=== PATIENT | male | born 1960 | race Caucasian/White ===

== ENCOUNTER 2025-06-04 14:06 | Outpatient (RCR) | payer SELFPAY | END 2025-06-04 23:59 | disposition home or self-care (01) | LOC: RPT 14:06 | PROVIDERS: ATTENDING PHYSICIAN Urology | DX: C61 Malignant neoplasm of prostate (principal); Z73.6 Limitation of activities due to disability; R35.1 Nocturia | CPT/HCPCS: 97162; 97530 ==

== ENCOUNTER 2025-06-21 06:09 | Day surgery (SDC) | payer OTHER, SELFPAY ==
[2025-06-11 08:57] LABS: Hematocrit 47.6 % (39.0-52.0); Hemoglobin 16.3 g/dL (13.0-18.0); Mean Corp Hgb Conc. 34.2 g/dL (33.0-37.0); Mean Corpuscular Volume 91.4 fL (80.0-94.0); Platelet Count 217 10^3/uL (130-400); Red Cell Dist. Width 12.8 % (11.5-14.5)
[2025-06-11 09:38] LABS: Blood Urea Nitrogen 24 mg/dl (9-20); Calcium 9.7 mg/dl (8.4-10.2); Carbon Dioxide 32 mmol/L (22-30); Chloride 106 mmol/L (98-107); Glucose 100 mg/dl (70-99); Potassium 5.0 mmol/L (3.5-5.1); Sodium 141 mmol/L (135-145); eGFR > 60.00
[2025-06-21] VITALS (11 sets, daily range): BP systolic 104–175; BP diastolic 59–89
[2025-06-21] MEDS: NORMOSOL-R/PLASMALYTE-A 1000 IV ×3 (10:49→18:33)
--- NOTE | 2025-06-21 16:36 | W.IMMPOSTOP ---
Surgical Immed Post Op Note
-
Primary Surgeon: Joefer
Assisting Surgeon: -
Pre-op Diagnosis: Prostate cancer
Post-op Diagnosis: same
Procedure Performed: Robotic radical prostatectomy, lymph node dissection
Anesthesia Type: general
Specimen / Cultures: prostate/SVs
Estimated Blood Loss: 100cc
Complications: none
Operative Findings: none
[2025-06-21 17:02] LABS: Hematocrit 43.0 % (39.0-52.0); Hemoglobin 14.8 g/dL (13.0-18.0)
[2025-06-21 17:19] LABS: Blood Urea Nitrogen 23 mg/dl (9-20); Calcium 8.5 mg/dl (8.4-10.2); Carbon Dioxide 25 mmol/L (22-30); Chloride 105 mmol/L (98-107); Estimated Creatinine Clearance 52 ml/min; Glucose 151 mg/dl (70-99); Potassium 3.8 mmol/L (3.5-5.1); Sodium 139 mmol/L (135-145); eGFR 51.99
[2025-06-21] MEDS: DETROL LA 4 MG PO (17:25)
[2025-06-21] MEDS: DILAUDID 0.25 MG IV (17:32)
[2025-06-21] MEDS: VALIUM INJECTION 5 MG IV (18:25)
[2025-06-21] MEDS: LOVENOX 40 MG SC (18:27)
--- NOTE | 2025-06-21 18:51 | PTCARENOTE ---
1800 Pt arrived. VSS. 4LO2. Jones draining bloody urine. 6 lap sites open to air with glue. IVF infusing. oriented to room and call salgado.
[2025-06-21] MEDS: TORADOL 15 MG IV (19:42)
[2025-06-21] MEDS: SENOKOT 17.2 MG PO (19:43)
[2025-06-21] MEDS: MORPHINE SULFATE 4 MG IV (22:32)
[2025-06-22] MEDS: TORADOL 15 MG IV ×3 (00:29→12:29)
[2025-06-22] MEDS: NORMOSOL-R/PLASMALYTE-A 1000 IV (00:49)
[2025-06-22 03:56] VITALS: BP 114/66
[2025-06-22] MEDS: PERCOCET 5/325 1 TABLET PO ×3 (04:43→22:33)
--- NOTE | 2025-06-22 07:40 | W.PN.URO.CBU ---
Today's Communication / Plan
-
OOB and ambulating
Generous PO fluid intake encouraged this AM
Repeat BMP to check Cr @1300
Jones catheter teaching
Discharge home later today
Assessment / Plan
-
[place] 7 prostate cancer
06/21: s/p RALP/BPLND
H/H stable
Cr 1.8 (1.3 post-op)
Meeting all post-op milestones.
Diagnosis
-
Date of Service: June 22, 2025
-
Patient Diagnosis:
[place] 7 prostate cancer
Post Op Day:
06/21: s/p RALP/BPLND
Subjective
-
Feels well - eager to go home today.
Expected mild abdominal soreness.
Tolerating diet.
Objective
-
Vital Signs
Temp Pulse Resp BP Pulse Ox
97.6 F 80 17 114/66 97
06/22/25 03:56 06/22/25 03:56 06/22/25 03:56 06/22/25 03:56 06/22/25 03:56
Intake and Output
06/21/25 06/22/25 06/23/25
06:59 06:59 06:59
Intake Total 200 / 200
Output Total 775 / 775 125 / 125
Balance -575 / -575 -125 / -125
Intake:
IV fluids (Total) 200 / 200
Normosol 200 / 200
Output:
Urine, Jones 775 / 775 125 / 125
Laboratory Results
06/22/25 06:56
06/22/25 06:56
Physical Exam
-
General - well developed, well nourished, no acute distress
Abdomen - soft, non-tender, non-distended
- Jones catheter w/ light blood-tinged UOP
Neuro - AOx3, no motor deficits
Extremities - no clubbing, no cyanosis, no edema
Incision - clean, dry
Dressing - clean, dry, intact
Care Review
Data Reviewed
Discussed with: Nursing
Total Time Spent with Patient (in minutes): 25
[2025-06-22 07:43] LABS: Hematocrit 39.9 % (39.0-52.0); Hemoglobin 13.4 g/dL (13.0-18.0); Mean Corp Hgb Conc. 33.6 g/dL (33.0-37.0); Mean Corpuscular Volume 92.6 fL (80.0-94.0); Platelet Count 218 10^3/uL (130-400); Red Cell Dist. Width 13.3 % (11.5-14.5)
[2025-06-22 08:00] VITALS: BP 112/65
[2025-06-22 08:04] LABS: Blood Urea Nitrogen 28 mg/dl (9-20); Calcium 8.0 mg/dl (8.4-10.2); Carbon Dioxide 28 mmol/L (22-30); Chloride 103 mmol/L (98-107); Estimated Creatinine Clearance 43 ml/min; Glucose 128 mg/dl (70-99); Potassium 4.2 mmol/L (3.5-5.1); Sodium 139 mmol/L (135-145); eGFR 41.77
--- NOTE | 2025-06-22 08:34 | W.DS.TRANS ---
DC Summary - Physician Assistant Primary Care
-
Discharge Instructions:
Sleep Apnea Risk Low
Discharge Diagnosis/Procedures Prostate cancer
Robotic radical prostatectomy
Diet No restrictions
Activity No strenuous activity
Additional Activity avoid lifting, straining, strenuous exercise for
4 weeks after surgery
Driving Restrictions As prior to admission
Bathing Restrictions OK to Shower
Wound Care gently rinse incisions in the shower. Don't
scrub or pick off glue
Instructions:
Stand-Alone Forms:
Changes to Home Medications: No
Discharge Medications:
DC Medications w/original date entered in [employer]
atorvastatin 10 mg tablet 10 mg PO DAILY 09/06/23
famotidine 20 mg tablet (Pepcid) 20 mg PO DAILY 09/06/23
cyanocobalamin (vitamin B-12) 1 dose PO DAILY 06/14/25
ibuprofen 200 mg tablet 400 mg PO Q6H PRN pain 06/14/25
oxycodone-acetaminophen 5 mg-325 mg tablet 1 tab PO Q4HPRN PRN moderate pain #12 tabs 06/21/25
Home Medication Changes
Pending Results: Yes
Additional Pending Results:
surgical pathology
Total time spent discharging patient (in min): 35
--- NOTE | 2025-06-22 09:21 | CM ---
LIBERTY met with patient in room. Patient lives with his mother and she will be available for assistance. Patient reports that he would like assistance with wilson. LIBERTY updated [facility] Admission RN.
PLAN: Home with VN.
--- NOTE | 2025-06-22 09:47 | VNURNOTE ---
Home Health Liaison met with patient at bedside to discuss [facility] nurse/therapy, visits, schedule and homebound status. Patient is agreeable and understands that visits at home will be 2-3 x per week to assess and teach medical and wilson
management. Patient is aware that [facility] will contact them for start of care in 1-2 days after discharge from . Provided contact number for [facility].
PM [facility] referral completed in [facility].
[2025-06-22] MEDS: VITAMIN B-12 1000 MCG PO (10:06)
[2025-06-22] MEDS: PEPCID 20 MG PO (10:07)
[2025-06-22] MEDS: LIPITOR 10 MG PO (10:07)
[2025-06-22] MEDS: SENOKOT 17.2 MG PO ×2 (10:07→20:41)
[2025-06-22] MEDS: FLUZONE (6 mos+) 2025-2026 FORMULA 0.5 ML IM (10:10)
[2025-06-22 12:30] VITALS: BP 104/61
[2025-06-22 13:21] LABS: Blood Urea Nitrogen 32 mg/dl (9-20); Calcium 8.4 mg/dl (8.4-10.2); Carbon Dioxide 29 mmol/L (22-30); Chloride 101 mmol/L (98-107); Estimated Creatinine Clearance 41 ml/min; Glucose 87 mg/dl (70-99); Potassium 4.0 mmol/L (3.5-5.1); Sodium 135 mmol/L (135-145); eGFR 39.15
--- NOTE | 2025-06-22 13:37 | W.PN.UPDATE ---
Addendum entered and electronically signed by Edwar Noonan MD 06/22/25 23:10:
CT notable for Jones catheter balloon at bladder neck w/ suspected occlusion of left UO - left hydroureteronephrosis noted.
Catheter balloon deflated 3 cc (total 10 to start) and catheter advanced proximally w/ manual flushing - easy drainage noted.
Recheck Cr in AM
Toradol tentatively d/c'd
Regular diet
Original Note:
Update Note
Progress Note Update
AM labs - Cr 1.8 (baseline Cr WNL)
Repeat Cr @1300 => 1.9.
UOP ~900 cc/24 hrs.
Plan:
- CTAP w/o IV contrast ordered to r/o obstructive uropathy or urine leak
- Cancel plan for discharge today
D/w RN.
D/w patient.
[2025-06-22 15:45] VITALS: BP 137/84
[2025-06-22] MEDS: LOVENOX 40 MG SC (16:33)
[2025-06-22] MEDS: MORPHINE SULFATE 4 MG IV (16:34)
[2025-06-22] MEDS: NSS 1000 IV (16:35)
[2025-06-22] MEDS: VALIUM INJECTION 5 MG IV (22:32)
[2025-06-22 23:24] VITALS: BP 118/74
[2025-06-23 07:50] VITALS: BP 138/91
[2025-06-23] MEDS: PEPCID 20 MG PO (07:50)
[2025-06-23] MEDS: LIPITOR 10 MG PO (07:50)
[2025-06-23] MEDS: PERCOCET 5/325 1 TABLET PO (07:51)
[2025-06-23] MEDS: SENOKOT 17.2 MG PO (07:51)
[2025-06-23] MEDS: VITAMIN B-12 1000 MCG PO (07:52)
[2025-06-23 08:04] LABS: Blood Urea Nitrogen 24 mg/dl (9-20); Calcium 8.2 mg/dl (8.4-10.2); Carbon Dioxide 32 mmol/L (22-30); Chloride 105 mmol/L (98-107); Estimated Creatinine Clearance 56 ml/min; Glucose 100 mg/dl (70-99); Potassium 4.0 mmol/L (3.5-5.1); Sodium 141 mmol/L (135-145); eGFR 56.48
--- NOTE | 2025-06-23 10:34 | W.PN.URO.CBU ---
Today's Communication / Plan
-
discharge
Assessment / Plan
-
[place] 7 prostate cancer
06/21: s/p RALP/BPLND
stable
Diagnosis
-
Date of Service: June 23, 2025
-
Patient Diagnosis:
[place] 7 prostate cancer
Post Op Day:
06/21: s/p RALP/BPLND
Subjective
-
'I'm ready to go home.'
Objective
-
Vital Signs
Temp Pulse Resp BP Pulse Ox
98.4 F 73 18 138/91 93
06/23/25 07:50 06/23/25 07:50 06/23/25 07:50 06/23/25 07:50 06/23/25 07:50
Intake and Output
06/22/25 06/23/25 06/24/25
06:59 06:59 06:59
Intake Total 200 / 200 1230 / 1230 480 / 480
Output Total 775 / 775 3775 / 3775 150 / 150
Balance -575 / -575 -2545 / -2545 330 / 330
Intake:
Oral fluids 480 / 480 480 / 480
IV fluids (Total) 200 / 200 750 / 750
Normosol 200 / 200
Output:
Urine, Jones 775 / 775 3775 / 3775 150 / 150
Other:
Number of approximated MODERATE 1
amounts of urine
Laboratory Results
06/22/25 06:56
06/23/25 06:08
Physical Exam
-
General - well developed, well nourished, no acute distress
Abdomen - soft, no distention
Genitalia - pale yellow urine via Jones
Skin - warm & dry with no rash
Neuro - AOx3, no motor deficits
Extremities - no clubbing, no cyanosis, no edema
Incisions - clean, dry
--- NOTE | 2025-06-23 10:58 | CM ---
CM following re: discharge planning.
Reviewed pt's chart, met with pt.
Discharge order noted. Pt is aware, expressed his agreement with discharge and pt stated his mother will transport home.
Pt reports he lives alone 2SH, 2 steps to enter, has 4 children, supportive mother.
Pt is aware he will have [facility] after care [facility]N services.
Please fax discharge instructions to [facility] at [phone]
D/C plan: home with [facility] and family support. Mother to transport.
[2025-06-23 11:44] VITALS: BP 148/82
== END 2025-06-23 11:47 | disposition home or self-care (01) ==
LOC: SDS 06:09
PROVIDERS: Surgery; ATTENDING PHYSICIAN Urology; FAMILY PHYSICIAN Family Medicine
DX: C61 Malignant neoplasm of prostate (principal)
CPT/HCPCS: 55866; 74176; 80048; 85014; 85018; 85027; 86850; 86900; 86901; 88307; 88309; 90656; 93005; G0008

== ENCOUNTER 2025-07-12 13:59 | Outpatient (RCR) | payer SELFPAY | END 2025-07-12 23:59 | disposition home or self-care (01) | LOC: RPT 13:59 | PROVIDERS: ATTENDING PHYSICIAN Urology | DX: C61 Malignant neoplasm of prostate (principal); Z73.6 Limitation of activities due to disability; R35.1 Nocturia; Z90.79 Acquired absence of other genital organ(s); Z98.890 Other specified postprocedural states | CPT/HCPCS: 97110; 97164; 97530 ==